=== PATIENT | male | born 1960 | race Hispanic/Latino ===

== ENCOUNTER 2016-05-03 08:45 | Outpatient (CLI) | payer OTHER ==
[2016-05-03 19:00] LABS: Albumin (w/Testosterone Panel) 4.1 g/dL
[2016-05-03 19:26] LABS: Sex Hormone Binding Globulin 42.7 nmol/L (11-78); Testosterone, Free 90.6 pg/mL (47-244); Testosterone, Total 497.4 ng/dL (221-716)
== END 2016-05-03 08:46 | disposition home or self-care (01) ==
LOC: MADLAB 08:45
DX: E29.1 Testicular hypofunction (principal)
CPT/HCPCS: 36415; 84270; 84403